=== PATIENT | female | born 1995 | race Caucasian/White ===

== ENCOUNTER 2023-10-02 11:33 | Emergency (ER) | payer MEDICAID ==
[~2023-10-02] VITALS: Ht 167.6 cm; Wt 66.0 kg
[2023-10-02 11:36] VITALS: O2SAT 100
[2023-10-02 12:07] LABS: BASOPHILS % 0.5 % (0.0-2.0); EOSINOPHILS % 1.2 % (0.0-5.0); HEMATOCRIT. 31.7 % (36.0-48.0); HEMOGLOBIN. 9.8 g/dL (12.0-16.0); LYMPHOCYTES % 18.5 % (20.0-50.0); MEAN CORPUSCULAR HEMOGLOBIN 20.2 pg (28.0-32.0); MEAN CORPUSCULAR HGB CONC 30.8 g/dL (31.0-37.0); MEAN CORPUSCULAR VOLUME 65.8 fL (81.0-99.0); MEAN PLATELET VOLUME 7.8 fl (7.4-10.4); MONOCYTES % 5.1 % (2.0-8.0); NEUTROPHILS % 74.7 % (40.0-76.0); PLATELET 365 x1000/uL (130-400); RED BLOOD CELL COUNT 4.82 mill/uL (4.2-5.4); RED CELL DISTRIBUTION WIDTH 18.4 % (11.6-14.6); WHITE BLOOD COUNT 6.9 x1000/uL (4.5-11.0)
[2023-10-02 12:09] LABS: DIFFERENTIAL COMMENT 1
[2023-10-02 12:10] LABS: ADD RBC MORPHOLOGY YES
[2023-10-02 12:20] LABS: ALANINE AMINOTRANSFERASE 18 IU/L (10-49); ALBUMIN 5.1 g/dL (3.2-4.8); ASPARTATE AMINOTRANSFERASE 22 IU/L (<34); BILIRUBIN TOTAL 0.7 mg/dL (0.1-1.0); CARBON DIOXIDE 22 mEq/L (21-32); CHLORIDE 107 mEq/L (98-107); CREATININE 0.7 mg/dL (0.6-1.0); GLUCOSE 102 mg/dL (70-105); POTASSIUM 3.6 mEq/L (3.5-5.1); PROTEIN TOTAL 7.8 g/dL (6.0-8.3); SODIUM 138 mEq/L (136-145); UREA NITROGEN BLOOD 10 mg/dL (9-23)
[2023-10-02 12:23] LABS: PROTHROMBIN TIME 10.9 sec (9.6-11.0)
[2023-10-02 12:28] LABS: HCG SCREEN NEGATIVE
[2023-10-02] MEDS: KETOROLAC 60MG/2ML VIAL IM ONE (12:54)
[2023-10-02 13:28] LABS: ANISOCYTOSIS 1+; MICROCYTOSIS 2+; PLATELET ESTIMATE NORMAL
[2023-10-02] MEDS ORDERED: IBUP-2030 PO (13:35)
[2023-10-02 13:54] VITALS: BP 100/50; PULSE 75; RESP 17; TEMP 98
[2023-10-02 14:05] LABS: GLUCOSE URINE NEGATIVE (NEGATIVE); KETONES URINE 1+ (NEGATIVE)
[2023-10-02 14:14] LABS: CLARITY URINE CLOUDY (CLEAR); COLOR URINE AMBER (YELLOW); PH URINE 8.5 (4.5-8.0); SPECIFIC GRAVITY URINE 1.024 (1.005-1.030)
[2023-10-02 14:15] LABS: NITRITE URINE NEGATIVE (NEGATIVE); OCCULT BLOOD URINE 3+ (NEGATIVE); PROTEIN URINE 2+ (NEGATIVE); UROBILINOGEN URINE 0.2 E.U./dL (0.2-1.0)
[2023-10-02 14:16] LABS: LEUKOCYTE ESTERASE URINE 2+ (NEGATIVE)
[2023-10-02 14:19] LABS: AMORPHOUS SEDIMENT URINE 2+ /lpf; BACTERIA URINE 2+; RBC URINE TNTC /hpf (0-2); SQUAMOUS EPITHELIAL CELL URINE 2+ /lpf (RARE/1+); WBC URINE 15-25 /hpf (0-2); YEAST URINE NONE SEEN
== END 2023-10-02 14:11 | disposition home or self-care (01) ==
LOC: ER 12:49
DX: N94.6 Dysmenorrhea, unspecified (principal)
CPT/HCPCS: 80053; 81003; 84703; 85025; 85610; 87086; 36415; 76830; 76856; 96372; 99285; J1885; Z7610 ×3